=== PATIENT | female | born 1955 | race Caucasian/White ===

== ENCOUNTER 2024-01-17 06:51 | Day surgery (SDC) | payer MEDICARE, OTHER ==
[2024-01-17] VITALS (118 sets, daily range): BP systolic 111–142; BP diastolic 63–79; PULSE 54–63; TEMP 98.2; O2SAT 88–97
[~2024-01-17] VITALS: Ht 167.7 cm; Wt 97.9 kg
[~2024-01-17 06:51] MED LIST: CALCIUM 600600 M2 PO; EPA FISH OIL1 SGL PO; LEXAPRO 10MG10 MG PO; LYRICA 150MG C150 MG PO; MULTIPLE VITAMI1 CAP PO; PREDNISONE10 M1 PO; REGLAN 10MG10 MG/TAB PO; VITAMIN D250 MCG PO
[2024-01-17] MEDS ORDERED: 1/2 NS 1,000 ML IV SCH (08:00)
[2024-01-17 08:18] LABS: HEMOGLOBIN 11.6 g/dl (12.5-16.0); MEAN CELL VOLUME 82 fl (80.0-100.0); MEAN CORPUSCULAR HEMOGLOBIN 27 pg (27-31); MEAN CORPUSCULAR HGB CONC 33 g/dl (33.0-37.0); MEAN PLATELET VOLUME 10.8 fl (7.4-10.4); PLATELET COUNT 232 K/mm3 (130-400); RED BLOOD COUNT 4.35 M/mm3 (4.10-5.30); REDCELL DISTRIBUTION WIDTH-CV 14.5 % (11.5-14.5)
[2024-01-17 08:19] LABS: HEMATOCRIT 35.7 % (37.0-47.0)
[2024-01-17 08:29] LABS: PARTIAL THROMBOPLASTIN TIME 28.9 SECONDS (26.0-37.0); PROTHROMBIN TIME 11.1 SECONDS (9.7-12.8)
[2024-01-17 08:35] LABS: CALCIUM 9.4 mg/dL (8.4-10.2); CREATININE, serum 0.78 mg/dL (0.57-1.11); POTASSIUM 3.9 mEq/L (3.5-4.5)
[2024-01-17] MEDS ORDERED: ALLEGRA-D 24 HO1 T24 PO (08:46)
[2024-01-17] MEDS ORDERED: ESTRACE0.5 MG PO (08:51)
[2024-01-17] MEDS ORDERED: FLONASE NASAL S16 GM NS (08:58)
[2024-01-17] MEDS ORDERED: COZAAR100 MG PO (08:59)
[2024-01-17] MEDS ORDERED: ZOCOR 20MG20 MG PO (09:00)
[2024-01-17] MEDS ORDERED: ELDERBERRY GUMMY PO (09:00)
[2024-01-17] MEDS ORDERED: VOLTAREN GEL 1%1 TU TP (09:01)
[2024-01-17] MEDS ORDERED: SINGULAIR 110 MG/TAB PO (09:01)
[2024-01-17] MEDS ORDERED: PROTONIX 40MG T40 MG PO (09:03)
[2024-01-17] MEDS ORDERED: MELATONIN ER10 MG PO (09:03)
[2024-01-17] MEDS ORDERED: TOPROL XL 25MG25 MG PO (09:04)
[2024-01-17] MEDS ORDERED: TOPROL XL 50MG50 MG PO (09:05)
--- NOTE | 2024-01-17 09:29 | NUR ---
SEE MERGE FOR PROCEDURE DOCUMENTATION
[2024-01-17] MEDS ORDERED: fentaNYL 50 MCG/ML 2 ML VIAL IV SCH (10:17)
[2024-01-17] MEDS ORDERED: Midazolam 2 MG/2 ML VIAL IV SCH (10:18)
--- NOTE | 2024-01-17 10:49 | NUR ---
PATIENT ALERT AND ORIENTED, VSS. GROIN SITE CDI. PATIENT TRANSFERRED TO BED VIA SLIDEBOARD AND TRANSPORTED TO [facility]. SPOUSE BROUGHT TO BEDSIDE, PLAN OF CARE AND PROCEDURE REVIEWED WITH PROVIDER. VSS. BED TO LOWEST POSITION, X3 BEDRAILS IN PLACE, CALL LIGHT WITHIN REACH.
--- NOTE | 2024-01-17 10:53 | NUR ---
Pt returned from procedure,report from William Morales.Dressing to right groin observed clean,dry,intact and soft to touch.
--- NOTE | 2024-01-17 15:27 | NUR ---
Discharge instructions given to pt.Pt verbalizes understanding.Dressing to right groin observed clean,dry,intact,and soft to touch.Pt escorted out via wheelchair by this nurse.
== END 2024-01-17 15:50 ==
LOC: COL.CAR 06:51
PROVIDERS: Internal Medicine Cardiovascular Disease
DX: R93.1 Abnormal findings on diagnostic imaging of heart and coronary circulation (principal); R06.02 Shortness of breath
CPT/HCPCS: C1894; J1644; J2250; J3010